=== PATIENT | male | born 1930 | race Caucasian/White ===

== ENCOUNTER → 2019-07-21 | Outpatient (CLI) | payer MEDICARE, OTHER ==
[~2019-07-21] MED LIST: ASA81 MG; DIPHENHYDRAMINE HCL INJ 50 MG/ML VIAL ONE; IOPAMIDOL 370 MG/ML 200 ML INFUS..BTL INJ ONE; METHYLPREDNISOLONE SOD SUCC 125 MG/2ML VIAL ONE; SODIUM CHLORIDE 0.9% 100 ML ONE; Z FISH OIL; Z.0.AMLODIPINE BESY1; Z.0.CITRACAL + D C1; Z.0.CLONIDINE HCL0.1; Z.0.CRESTOR40 MG; Z.0.OMEPRAZOLE40 MG; Z.0.SOTALOL80 MG; Z.0.SYNTHROID88 MCG; Z.0.VITAMIN D50000 U; Z.0.ZESTRIL10 MG; Z.0.ZETIA10 MG; [UNRECOGNIZED DRUG - CODE]; [UNRECOGNIZED DRUG - OTHER]; [UNRECOGNIZED DRUG - OTHER]
[2019-07-21 11:04] LABS: CREATININE, SERUM 1.15 mg/dL (0.72-1.25)
--- NOTE | 2019-07-21 15:13 | Diagnostic Imaging Report ---
EXAM: CTA Abdomen WITH intravenous contrast INDICATION: Mesenteric ischemia COMPARISON: None. TECHNIQUE: The abdomen was scanned utilizing a multidetector helical scanner from the lung base to the iliac crest after administration of IV contrast. Coronal and sagittal reformations were obtained. 3D post-processing of the images was performed, and the post-processed images were used in interpretation. CTA protocol was used and images obtained in arterial phase. IV CONTRAST: 100mL of Isovue 370 ORAL CONTRAST: None RADIATION DOSE: Total DLP: 257.4 mGy*cm Dose modulation, iterative reconstruction, and/or weight based adjustment of the mA/kV was utilized to reduce the radiation dose to as low as reasonably achievable. FINDINGS: LOWER THORAX: Mild bibasilar subsegmental atelectasis. Smooth interlobular septal thickening, likely representing mild interstitial pulmonary edema. Pacemaker leads partially visualized. Mild coronary artery atherosclerotic calcifications. Moderate hiatal hernia. HEPATOBILIARY: No focal liver lesion. No biliary ductal dilation. Unremarkable gallbladder. SPLEEN: No splenomegaly. PANCREAS: No focal masses or ductal dilatation. ADRENALS: No adrenal nodules. KIDNEYS/URETERS: No hydronephrosis, stones, or solid mass lesions. PERITONEUM / RETROPERITONEUM: No free air or fluid. LYMPH NODES: No lymphadenopathy. VESSELS: Moderate diffuse atherosclerotic calcifications of the nonaneurysmal abdominal aorta and major branches. No dissection flap. No aortic aneurysm. Status post right and left renal artery stenting. The stented renal arteries appear patent. There is an accessory renal artery on each side, both of which are patent. 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 There is associated post stenotic dilation of the proximal celiac artery. 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 Moderate narrowing at the RODOLFO origin. GI TRACT: No abnormal bowel thickening. No bowel obstruction. Normal appendix. BONES AND SOFT TISSUES: No acute osseous injury. No suspicious lytic or blastic lesions. Multilevel degenerative changes of the visualized spine. Sternotomy wires partially visualized. 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 No CT evidence of bowel ischemia. Status post right and left main renal artery stenting. The stented renal arteries are patent. Right and left accessory renal arteries also remain patent. Mild interstitial pulmonary edema. Signed by: Diana Real MD on 07/21/2019 3:11 PM
== END ==
LOC: CT 05:00
PROVIDERS: ATTEND Internal Medicine Cardiovascular Disease
DX: K55.1 Chronic vascular disorders of intestine (principal)
CPT/HCPCS: 36415; 74175; 82565; 84520; J1200; J2930; J7050; Q9967